=== PATIENT | male | born 1985 | race Caucasian/White ===

== ENCOUNTER 2024-03-13 19:38 | Emergency (ER) | payer OTHER, SELFPAY ==
[2024-03-13 19:48] VITALS: BP 129/81; PULSE 84; RESP 16; TEMP 36.3; O2SAT 98; BMI 41.8
--- NOTE | 2024-03-13 19:51 | ED.GENADULT ---
HPI - General Adult General Chief complaint: Laceration/Wound Stated complaint: fell, head laceration Time Seen by Provider: 03/13/24 19:48 History of Present Illness HPI narrative: Patient fell backward on a porch and hit his head on a door. Approximately 3 inch laceration to back of the scalp. Bleeding controlled. No LOC. 38-year-old man presenting to the emergency department after falling backward striking his head apparently on the edge of a door on the way down. He is accompanied here by friend and significant other? Event was observed. They note a good deal of blood coming from the back of his head having sustained a laceration. There was no loss of consciousness. Does not have any neck or back pain. No visual disturbance. He is not nauseated. Alcohol has been involved today. Denies bleeding problems. Related Data Home Medications ?Medication ?Instructions ?Recorded ?Confirmed loratadine .ROUTE 03/13/24 Allergies Allergy/AdvReac Type Severity Reaction Status Date / Time No Known Drug Allergies Allergy Verified 03/13/24 19:48 Review of Systems Status of ROS: Reports: 6 or more systems reviewed and unremarkable except as noted in History and below Exam Narrative: Exam Narrative: Very pleasant. NAD. Mildly intoxicated. Cranial nerves 2-12 are intact. Pupils at 6 mm and appropriately reactive. Extraocular movements are full. Moving all extremities without difficulty. No other injuries appear to has been sustained. Heart in regular rate and rhythm. Neck is supple nontender. Back nontender and without deformity. No fluid in ear canals. No Noriega sign. At the upper occipital-parietal scalp there is a slightly diagonal mostly linear full dermal laceration. Bleeds easily manipulated. Dried and clotting blood in the area. Generally clean wound. Measures 5 cm. Const: Vital Signs, click to edit/add: Vital Signs - 24 hr 03/13/24 19:48 Temperature 97.4 F L Pulse Rate [Pulse Oximeter] 84 Respiratory Rate 16 Blood Pressure [Ri ght Upper Arm] 129/81 Pulse Oximetry 98 Oxygen Delivery Me thod Room Air Documenting provider has reviewed patient's vital signs: yes Course Vital Signs Vital signs: Initial Vital Signs Temperature 97.4 F L 03/13/24 19:48 Temperature Source Temporal Artery Scan 03/13/24 19:48 Pulse Rate 84 03/13/24 19:48 Respiratory Rate 16 03/13/24 19:48 Blood Pressure 129/81 03/13/24 19:48 Blood Pressure Mean 97 03/13/24 19:48 Blood Pressure Position Sitting 03/13/24 19:48 Pulse Oximetry 98 03/13/24 19:48 Oxygen Delivery Method Room Air 03/13/24 19:48 Vital Signs Temperature 97.4 F L 03/13/24 19:48 Pulse Rate 84 03/13/24 19:48 Respiratory Rate 16 03/13/24 19:48 Blood Pressure 129/81 03/13/24 19:48 Pulse Oximetry 98 03/13/24 19:48 Oxygen Delivery Method Room Air 03/13/24 19:48 Temperature 97.4 F L 03/13/24 19:48 Pulse Rate 84 03/13/24 19:48 Respiratory Rate 16 03/13/24 19:48 Blood Pressure 129/81 03/13/24 19:48 Pulse Oximetry 98 03/13/24 19:48 Oxygen Delivery Method Room Air 03/13/24 19:48 Medical Decision Making MDM Narrative Medical decision making narrative: Sounds to have been more of a glancing partial impact less of an axial load type injury. Appears generally well. We did discuss imaging of head and neck but opted to defer; he says he feels quite well otherwise. This wound will need repair. Discussed stapling but will be putting pressure on the back of the scalp in sleep. I think this would be uncomfortable. I think sutures would be a better option. Returned to inject scalp with 1% lidocaine with epinephrine. Very good wound anesthesia achieved. Spent time further cleaning with Shur-Clens equivalent solution. Closed with interrupted 5-0 Vicryl sutures. Excellent wound approximation achieved and controlled bleeding. See patient discharge plan for further discussion Might want a put chux or some other rag cloth/towel on your pillow tonight. sutures out in 8 - 10 days. Shower as needed tonight. Then ok to get wet but try not to soak while sutures are in. Discharge Plan Discharge Clinical Impression: Laceration of scalp, Closed head injury Patient Disposition: Home w/ Parent or Adult Condition: Improved Additional Instructions: Might want a put chux or some other rag cloth/towel on your pillow tonight. sutures out in 8 - 10 days. Shower as needed tonight. Then ok to get wet but try not to soak while sutures are in. Prescriptions: No Action loratadine [Claritin] .ROUTE Stand Alone Forms: [employer] Info Instructions
== END 2024-03-13 20:38 | disposition home or self-care (01) ==
LOC: ED 20:37
PROVIDERS: Emergency Provider Family Medicine
DX: S01.01XA Laceration without foreign body of scalp, initial encounter (principal); W18.30XA Fall on same level, unspecified, initial encounter
CPT/HCPCS: 12002; 99283; 99284